=== PATIENT | female | born 1940 | race Caucasian/White ===

== ENCOUNTER 2019-03-29 13:48 | Emergency (ER) | payer MEDICAID, MEDICARE ==
[~2019-03-29] VITALS: Ht 160 cm; Wt 63.2 kg
[2019-03-29] MEDS ORDERED: IBUPROFEN 400 MG TABLET PO ONE (17:00)
[2019-03-29] MEDS ORDERED: ACETAMINOPHEN 325 MG TABLET PO ONE (17:00)
[2019-03-29] MEDS ORDERED: LIDOCAINE 5% TRANSDERMAL PATCH TD ONE (17:00)
[2019-03-29 17:38] LABS: APPEARANCE,URINE CLEAR (CLEAR); BILIRUBIN,URINE NEGATIVE (NEGATIVE); GLUCOSE, URINE (UA) NEGATIVE (NEGATIVE); KETONES,URINE TRACE mg/dL (NEGATIVE); LEUKOCYTE ESTERASE ,URINE NEGATIVE (NEGATIVE); NITRATE,URINE NEGATIVE (NEGATIVE); OCCULT BLOOD,URINE NEGATIVE (NEGATIVE); PROTEIN,URINE NEGATIVE (NEGATIVE)
[2019-03-29 17:57] LABS: BACTERIA,URINE None Seen /HPF (None Seen); RBC,URINE 0-2 /HPF (0-2); WBC,URINE 0-2 /HPF (0-5)
[2019-03-29 17:58] LABS: SQUAMOUS EPITHELIAL CELL,UR Few /LPF (None Seen)
[2019-03-29 18:46] VITALS: BP 118/63
== END 2019-03-29 18:48 | disposition home or self-care (01) ==
LOC: EMS 13:52
DX: S09.90XA Unspecified injury of head, initial encounter (principal); M54.5 Low back pain; Z90.49 Acquired absence of other specified parts of digestive tract; Z98.890 Other specified postprocedural states; W18.39XA Other fall on same level, initial encounter; Y93.89 Activity, other specified; Y92.89 Other specified places as the place of occurrence of the external cause; Y99.8 Other external cause status
CPT/HCPCS: 70450; 72170